=== PATIENT | female | born 1955 | race Caucasian/White ===

== ENCOUNTER 2016-10-03 09:10 | Day surgery (SDC) | payer OTHER ==
[~2016-10-03] VITALS: Ht 165.1 cm; Wt 83.9 kg
[~2016-10-03 09:10] MED LIST: 0.9% Sodium Chloride 1,000 ML IV SCH; NO MEDS; Sodium Chloride LOK Flush 10 mL Syringe IV PRN; fentaNYL-PF 50 mCg/mL 2 mL Inj IVPUSH PRN
[2016-10-03 09:55] VITALS: BP 133/84; PULSE 80; RESP 16; O2SAT 97
[2016-10-03 11:42] VITALS: BP 114/84; PULSE 77; RESP 14; O2SAT 94
[2016-10-03 11:52] VITALS: BP 105/70; PULSE 69; RESP 14; O2SAT 96
--- NOTE | 2016-10-03 11:57 | ENDO ---
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 POSTOPERATIVE DIAGNOSIS: Small distal sigmoid colon polyps. PROCEDURE: Colonoscopy into terminal ileum with cold forceps polypectomy. SURGEON: Jacob Eugene MD. INDICATIONS: A 61-year-old female, who four years ago presented with an obstructing descending colon cancer. She had a T2 N0 (30 lymph nodes) tumor. She had a followup colonoscopy at one year and is now here for subsequent followup colonoscopy. FINDINGS: She had a good prep. The scope was advanced into the terminal ileum. The only abnormality was two very small, 1-2 mm polyps in the distal sigmoid colon and grossly resembled hyperplastic polyps. There was no evidence of anastomotic recurrence. Retroflexed views of the rectum were normal. DESCRIPTION OF PROCEDURE: The procedure and sedation plan was discussed with the patient and nursing staff, and a procedural time-out was held. She received 2 mg of Versed and 50 mcg of fentanyl. A digital rectal exam was performed, and the Olympus [id number]-H180AL video colonoscope was passed transanally, advanced into the terminal ileum and withdrawn with results as stated above. Cold forceps polypectomies were performed of the two small polyps, which grossly resemble hyperplastic polyps. IMPRESSION: No gross evidence of adenomatous polyps or recurrence of her descending colon cancer. PLAN: I will call her with histology and then recommend a followup based on those results.
[2016-10-03 12:02] VITALS: BP 111/75; PULSE 68; RESP 14; O2SAT 97
--- NOTE | 2016-10-04 14:28 | PATH ---
SURGICAL PATHOLOGY Attending Physician:Viry Terry CASE STATUS: Signed Out PATIENT NAME: JUAN PEREZ PID: [id number] : 1955 DATE COLLECTED:10/03/2016 20:31 SPECIMEN: Colon, Biopsy CLINICAL HISTORY: 1). SIGMOID COLON POLYPS FINAL DIAGNOSIS: 1.SIGMOID COLON POLYPS: HYPERPLASTIC POLYPS INVOLVING BOTH BIOPSY FRAGMENTS. ICD10 CODE K63.5 GROSS DESCRIPTION: The specimen is received in one formalin filled container labeled with the patient's name, sublabeled "sigmoid colon polyps" and consists of 2 portions of tissue which aggregate to 0.4 x 0.4 x 0.3 CM. The specimen is entirely submitted in one cassette. 10/03/2016 [facility] MICRO DESCRIPTION: See diagnosis. ICD-9 CODES: CPT CODES: 1: 93467 Electronically Signed Out Tripp Dhaliwal MD [facility] Pathology [facility] [address], [place] [address] Technical component performed at [facility], [facility] [address], [address]
== END 2016-10-03 23:59 | disposition home or self-care (01) ==
LOC: END 09:10
PROVIDERS: ATTEND Surgery
DX: Z12.11 Encounter for screening for malignant neoplasm of colon (principal); Z85.038 Personal history of other malignant neoplasm of large intestine; K63.5 Polyp of colon
CPT/HCPCS: 45380; G0500; J2250; J3010; J7030